=== PATIENT | male | born 1980 | race African-American/Black ===

== ENCOUNTER 2017-04-16 09:57 | Emergency (ER) | payer OTHER, BC ==
[2017-04-16] MEDS ORDERED: OXYCODONE-ACETAMINOPHEN 5-325 MG TABLET PO ONE (10:55)
--- NOTE | 2017-04-16 11:03 | ER Document Report ---
ED Hand/Wrist Injury - General Mode of Arrival: Ambulatory Information source: Patient TRAVEL OUTSIDE OF THE [place] IN LAST 30 DAYS: No - HPI Injury to: Hand, Middle finger Context: Other - see notes above - General Chief Complaint: Hand Pain Stated Complaint: RIGHT HAND INJURY Notes: 36-year-old male presents to the ED complaining of a throbbing pain to the dorsal aspect of the right hand that started a couple days ago. Patient reports that his right 3rd digit was caught in a conveyor belt on 10/28/2017 which resulted in a partial amputation. Patient had a complete amputation of the right 3rd digit on 04/09/2017 and is now complaining of throbbing pain. Patient saw his surgeon, Dr. Hui, yesterday and had the hand splinted and wrapped in an parish wrap. Patient states that he was given 600 mg Ibuprofen for pain control , but reports that it does not help. (KAREN KRAMER) - Related Data Allergies/Adverse Reactions: Shellfish * [Shellfish] Allergy (Verified 04/16/17 10:06) beans Allergy (Uncoded 04/16/17 10:06) Past Medical History - General Information source: Patient - Social History Smoking Status: Current Every Day Smoker Chew tobacco use (# tins/day): No Frequency of alcohol use: None Drug Abuse: None Family History: Reviewed & Not Pertinent, Other - Brother with kidney stones. Patient has suicidal ideation: No Patient has homicidal ideation: No Pulmonary Medical History: Reports: Hx Asthma Renal/ Medical History: Denies: Hx Peritoneal Dialysis Past Surgical History: Reports: Hx Orthopedic Surgery - right hand 3rd digit amputation 04/09/2017 - Immunizations Immunizations up to date: Yes Hx Diphtheria, Pertussis, Tetanus Vaccination: Yes Review of Systems - Review of Systems Constitutional: No symptoms reported EENT: No symptoms reported Cardiovascular: No symptoms reported Respiratory: No symptoms reported Gastrointestinal: No symptoms reported Genitourinary: No symptoms reported Male Genitourinary: No symptoms reported Musculoskeletal: See HPI, Other - throbbing pain to the dorsal aspect of the right hand Skin: No symptoms reported Hematologic/Lymphatic: No symptoms reported Neurological/Psychological: No symptoms reported -: Yes All other systems reviewed and negative Physical Exam - General General appearance: Alert In distress: None - HEENT Head: Normocephalic, Atraumatic Eyes: Normal Extraocular movements intact: Yes Pupils: PERRL - Respiratory Respiratory status: No respiratory distress - Cardiovascular Rhythm: Regular - Abdominal Inspection: Normal - Back Back: Normal - Extremities General upper extremity: No: Normal inspection - see hand exam General lower extremity: Normal inspection, Normal ROM Hand: Other - Patient is missing his right third digit. There is pain to the dorsal aspect of the right hand upon palpation.. No: Normal - Neurological Neuro grossly intact: Yes Cognition: Normal Orientation: AAOx4 Dierks Coma Scale Eye Opening: Spontaneous Arielle Coma Scale Verbal: Oriented Arielle Coma Scale Motor: Obeys Commands Dierks Coma Scale Total: 15 Speech: Normal - Psychological Associated symptoms: Normal affect, Normal mood - Skin Skin Temperature: Warm Skin Moisture: Dry Skin Color: Normal Course - Re-evaluation Re-evalutation: 04/16/17 12:14 Acute findings on x-ray. No evidence for infection. Patient will be given better pain control and is to follow-up with his doctor. Of note, he saw a hand surgeon yesterday. (LOUISE MISTRY) - Vital Signs Vital signs: Temp Pulse Resp BP Pulse Ox 98.2 F 77 18 131/90 H 100 04/16/17 10:06 04/16/17 10:06 04/16/17 10:06 04/16/17 10:06 04/16/17 10:06 Discharge - Discharge Clinical Impression: Hand pain, right, Post-op pain Condition: Stable Disposition: HOME, SELF-CARE Instructions: Arm Pain, Nonspecific ([facility]) Additional Instructions: Follow-up with your surgeon as scheduled. There is no evidence for infection today. Prescriptions: Oxycodone HCl/Acetaminophen [Percocet 5-325 mg Tablet] 1 tab PO TIDP PRN #20 tablet PRN Reason: Scribe Attestation: 04/16/17 12:17 I personally performed the services described in the documentation, reviewed and edited the documentation which was dictated to the scribe in my presence, and it accurately records my words and actions. (LOUISE MISTRY) Scribe Documentation - Scribe Written by Scribe:: Elpidio Swanson, 04/16/2017 1105 acting as scribe for :: Hardy
--- NOTE | 2017-04-16 12:06 | RADIOLOGY REPORT (SQ) ---
EXAM DESCRIPTION: HAND RIGHT 3 VIEWS COMPLETED DATE/TIME: 04/16/2017 10:50 am REASON FOR STUDY: hand injury COMPARISON: None. EXAM PARAMETERS: NUMBER OF VIEWS: Three views. TECHNIQUE: AP, lateral and oblique radiographic images acquired of the right hand. LIMITATIONS: None. FINDINGS: MINERALIZATION: Normal. BONES: The 3rd digit has been amputated down to the base of the 3rd metacarpal. No acute osseous abn ormality seen. JOINTS: No effusions. SOFT TISSUES: No soft tissue swelling. No foreign body. OTHER: A long pin appears to traverse the 2nd, 4th, and 5th metacarpals. Surgical clips are present between the 2nd and 4th metacarpals. IMPRESSION: Surgical changes with no acute abnormality. TECHNICAL DOCUMENTATION: JOB ID: [id number] [employer]- All Rights Reserved
[2017-04-16 12:48] VITALS: BP 146/95
== END 2017-04-16 12:20 | disposition home or self-care (01) ==
LOC: ER 09:57
DX: G89.18 Other acute postprocedural pain (principal); M79.643 Pain in unspecified hand; J45.909 Unspecified asthma, uncomplicated; F17.200 Nicotine dependence, unspecified, uncomplicated; Z91.013 Allergy to seafood; Z91.018 Allergy to other foods; Z89.021 Acquired absence of right finger(s)
CPT/HCPCS: 99283

== ENCOUNTER 2017-05-08 23:32 | Emergency (ER) | payer OTHER, BC ==
[2017-05-09] MEDS ORDERED: SULFAMETHOXAZOLE/TRIMETHOPRIM 800-160 MG TABLET PO ONE (00:01)
[2017-05-09] MEDS ORDERED: CEPHALEXIN 500 MG CAPSULE PO ONE (00:01)
[2017-05-09] MEDS ORDERED: ACETAMINOPHEN 325 MG TABLET PO ONE (00:01)
[2017-05-09] MEDS ORDERED: MORPHINE SULFATE IR 15 MG TABLET PO ONE (00:01)
--- NOTE | 2017-05-09 00:02 | ER Document Report ---
ED General - General Chief Complaint: Hand Pain Stated Complaint: HAND PAIN Time Seen by Provider: 05/08/17 23:56 Notes: Patient is a 36-year-old male who had a partial amputation of his right third digit secondary to a work accident approximately 2 weeks ago, procedure performed at [facility] who presents with concerns of increasing pain to the area as well as movement of the pin Describes a dull, constant, aching pain that is worsened by movement of the hand. He has been trying ibuprofen with minimal improvement of the pain. He also notes that he has had a small amount of malodorous discharge around the insertion site of the external fixation device. He contacted his orthopedic surgeon but was told he could not be seen for 2 weeks. No other history of this in the postoperative course. He has not had any fever or constitutional symptoms. TRAVEL OUTSIDE OF THE [place] IN LAST 30 DAYS: No - Related Data Allergies/Adverse Reactions: Shellfish * [Shellfish] Allergy (Verified 04/16/17 10:06) beans Allergy (Uncoded 04/16/17 10:06) Past Medical History - General Information source: Patient - Social History Smoking Status: Never Smoker Frequency of alcohol use: None Drug Abuse: None Lives with: Spouse/Significant other Family History: Reviewed & Not Pertinent, Other - Brother with kidney stones. Patient has suicidal ideation: No Patient has homicidal ideation: No Pulmonary Medical History: Reports: Hx Asthma Renal/ Medical History: Denies: Hx Peritoneal Dialysis Past Surgical History: Reports: Hx Orthopedic Surgery - right hand 3rd digit amputation 04/09/2017 - Immunizations Immunizations up to date: Yes Hx Diphtheria, Pertussis, Tetanus Vaccination: Yes Review of Systems - Review of Systems Notes: Constitutional: Negative for fever. HENT: Negative for sore throat. Eyes: Negative for visual changes. Cardiovascular: Negative for chest pain. Respiratory: Negative for shortness of breath. Gastrointestinal: Negative for abdominal pain, vomiting or diarrhea. Genitourinary: Negative for dysuria. Musculoskeletal: Positive for right hand pain Skin: Negative for rash. Neurological: Negative for headaches, weakness or numbness. 10 point ROS negative except as marked above and in HPI. Physical Exam - Vital signs Vitals: Temp Pulse Resp BP Pulse Ox 98 F 84 18 151/86 H 98 05/08/17 23:53 05/08/17 23:53 05/08/17 23:53 07/07/17 23:53 05/08/17 23:53 Interpretation: Hypertensive Notes: PHYSICAL EXAMINATION: GENERAL: Well-appearing, well-nourished and in no acute distress. HEAD: Atraumatic, normocephalic. EYES: sclera anicteric, conjunctiva are normal. ENT: Moist mucous membranes. NECK: Normal range of motion LUNGS: Normal work of breathing HEART: 2+ radial pulses bilaterally EXTREMITIES: Mild amount of purulent drainage around the K wire insertion site of the right hand on the dorsal surface. Amputation of the third digit NEUROLOGICAL: No focal neurological deficits. Moves all extremities spontaneously and on command. PSYCH: Normal mood, normal affect. SKIN: Warm, Dry, normal turgor, no rashes or lesions noted. Course - Re-evaluation Re-evalutation: 05/09/17 00:01 Patient presents after he had an amputation of the third digit of his right hand one month ago in [place] with concerns that the pin that was placed has some deeper into the soft tissue, now has a malodorous discharge and is increasingly painful concerning for an acute infection. Apparently he contacted the orthopedic surgeon marketing automation specialist and was told that he can have an appointment in 2 weeks so he came here to the emergency department for further evaluation. Patient is otherwise nontoxic in appearance, no acute distress, neurovascularly intact. Will obtain a basic x-ray, start on Keflex and Bactrim for broad staph and strep coverage and I encouraged the patient to try to follow -up with his orthopedic surgeon much sooner than 2 weeks. 05/09/17 00:46 X-ray without evidence of hardware displacement. At this time will discharge with return precautions and follow-up recommendations. Verbal discharge instructions given a the bedside and opportunity for questions given. Medication warnings reviewed. Patient is in agreement with this plan and has verbalized understanding of return precautions and the need for primary care follow-up in the next 24-72 hours. - Vital Signs Vital signs: Temp Pulse Resp BP Pulse Ox 98 F 77 20 148/82 H 100 05/08/17 23:53 05/09/17 00:57 05/09/17 00:57 05/09/17 00:57 05/09/17 00:57 Discharge - Discharge Clinical Impression: Right hand pain Surgical site infection Qualifiers: Encounter type: initial encounter Qualified Code(s): T81.4XXA - Infection following a procedure, initial encounter Condition: Good Disposition: HOME, SELF-CARE Additional Instructions: Your x-ray does not show displacement of the hardware placed in your hand. Your being started on 2 different antibiotics to help treat a possible infection. Please take all antibiotics even if your symptoms improve. Please follow-up up with her orthopedic surgeon as soon as possible. Return to the emergency department if you have worsening of your pain, spreading redness from the area, fever greater than 101F, or any other symptoms that are worrisome to you. Prescriptions: Cephalexin Monohydrate [Keflex 500 mg Capsule] 500 mg PO QID #28 capsule Sulfamethoxazole/Trimethoprim [Bactrim Ds Tablet] 1 tab PO BID #14 tablet
--- NOTE | 2017-05-09 00:32 | RADIOLOGY REPORT (SQ) ---
EXAM DESCRIPTION: HAND RIGHT 2 VIEWS COMPLETED DATE/TIME: 05/09/2017 12:12 am REASON FOR STUDY: increased pain post-dayton placement COMPARISON: None. EXAM PARAMETERS: NUMBER OF VIEWS: Three views. TECHNIQUE: AP, lateral and oblique radiographic images acquired of the right hand. LIMITATIONS: None. FINDINGS: MINERALIZATION: Normal. BONES: Pin fixation of the right 2nd, 4th, and 5th meta carpi. Surgical clips between the 2nd and 4t h digits. Amputation of the right 3rd digit at the proximal diaphysis. No evidence of metal fractur e or loosening. JOINTS: No effusions. SOFT TISSUES: No soft tissue swelling. No foreign body. OTHER: No other significant finding. IMPRESSION: No acute findings. Prior ORIF. TECHNICAL DOCUMENTATION: JOB ID: [id number] [employer]- All Rights Reserved
[2017-05-09] MEDS ORDERED: HYDROCODONE/ACETAMINOPHEN 5-325 MG 6 TAB/DSPK PO PRN (00:47)
[2017-05-09 00:58] VITALS: BP 148/82
== END 2017-05-09 00:58 | disposition home or self-care (01) ==
LOC: ER 23:32
DX: M79.641 Pain in right hand (principal); T81.4XXA Infection following a procedure, initial encounter; Z89.021 Acquired absence of right finger(s); Z91.013 Allergy to seafood; Z91.018 Allergy to other foods
CPT/HCPCS: 99283

== ENCOUNTER 2018-06-03 15:57 | Emergency (ER) | payer SELFPAY ==
[2018-06-03 16:03] VITALS: BP 150/92
--- NOTE | 2018-06-03 16:30 | ER Document Report ---
HPI - HPI Patient complains to provider of: Posterior left knee pain Onset: Other - 2 weeks Onset/Duration: Intermittent Pain Level: 3 Context: 37-year-old male complaining of posterior right knee pain especially when he leaves it to straight for too long or bent for too long it seems to get locked. There is no injury. The pain does radiate around to the anterior part of his right leg. There is no back pain no fever. This started about 2 weeks ago. He works in a [employer]. No history of DVT or PE. No chest pain or shortness of breath. Associated Symptoms: None Exacerbated by: Other - See above Relieved by: Denies Similar symptoms previously: No Recently seen / treated by doctor: No - ROS ROS below otherwise negative: Yes Systems Reviewed and Negative: Yes All other systems reviewed and negative Past Medical History - General Information source: Patient - Social History Smoking Status: Never Smoker Frequency of alcohol use: None Drug Abuse: None Lives with: Family Family History: Reviewed & Not Pertinent, Other - Brother with kidney stones. Pulmonary Medical History: Reports: Hx Asthma Renal/ Medical History: Denies: Hx Peritoneal Dialysis Past Surgical History: Reports: Hx Orthopedic Surgery - right hand 3rd digit amputation 04/09/2017 - Immunizations Immunizations up to date: Yes Hx Diphtheria, Pertussis, Tetanus Vaccination: Yes Vertical Provider Document - CONSTITUTIONAL Agree With Documented VS: Yes Exam Limitations: No Limitations - INFECTION CONTROL TRAVEL OUTSIDE OF THE [place] IN LAST 30 DAYS: No - RESPIRATORY Respiratory: Breath Sounds Normal, No Respiratory Distress - CARDIOVASCULAR Cardiovascular: Regular Rate, Regular Rhythm - MUSCULOSKELETAL/EXTREMETIES Musculoskeletal/Extremeties: MAEW, FROM, Tender - Posterior medial left knee, no Clemons's cyst., No Edema - NEURO Level of Consciousness: Alert Motor/Sensory: No Motor Deficit, No Sensory Deficit - DERM Integumentary: No Rash Course - Re-evaluation Re-evalutation: 06/03/18 17:50 X-rays negative per rad. Consult Dr. Mclaughlin who recommends getting a venous Doppler ultrasound. 06/03/18 18:38 The patient does not want to wait for the venous Doppler ultrasound he wants to go home and take Tylenol. I had the nurse present in the room and advised him of his risks which would include a blood clot in his leg and a piece breaking off and going into the lung and possibly causing . He is willing to accept this risk and is signing the AMA forms. - Vital Signs Vital signs: Temp Pulse Resp BP Pulse Ox 99.0 F 94 16 150/92 H 98 06/03/18 16:02 06/03/18 16:02 06/03/18 16:02 06/03/18 16:02 06/03/18 16:02 Discharge - Discharge Disposition: AGAINST MEDICAL ADVICE
--- NOTE | 2018-06-03 17:38 | RADIOLOGY REPORT (SQ) ---
EXAM DESCRIPTION: KNEE RIGHT 4 VIEWS COMPLETED DATE/TIME: 06/03/2018 5:17 pm REASON FOR STUDY: pain COMPARISON: March 2016 NUMBER OF VIEWS: Four views. TECHNIQUE: AP, lateral, and both oblique radiographic images acquired of the right knee. LIMITATIONS: None. FINDINGS: MINERALIZATION: Normal. BONES: No acute fracture or dislocation. No worrisome bone lesions. JOINT: No effusion. SOFT TISSUES: No soft tissue swelling. No radio-opaque foreign body. OTHER: No other significant finding. IMPRESSION: NEGATIVE STUDY OF THE RIGHT KNEE. NO RADIOGRAPHIC EVIDENCE OF ACUTE INJURY. TECHNICAL DOCUMENTATION: JOB ID: [id number] [employer]- All Rights Reserved Reading location - IP/workstation name: [email or web address]
== END 2018-06-03 18:44 | disposition left against medical advice (07) ==
LOC: ER 15:57
DX: M25.561 Pain in right knee (principal); J45.909 Unspecified asthma, uncomplicated; Z53.20 Procedure and treatment not carried out because of patient's decision for unspecified reasons
CPT/HCPCS: 99283

== ENCOUNTER → 2019-01-26 | Outpatient (CLI) | payer BC ==
--- NOTE | 2019-01-26 15:46 | RADIOLOGY REPORT (SQ) ---
EXAM DESCRIPTION: MRI RT LOWER JOINT WITHOUT COMPLETED DATE/TIME: 01/26/2019 1:01 pm REASON FOR STUDY: M25.561 PAIN IN RIGHT KNEE M25.561 PAIN IN RIGHT KNEE COMPARISON: None. TECHNIQUE: Rightknee images acquired and stored on PACS. Multiplanar images include fat sensitive s equences as T1, water sensitive sequences as FST2 or STIR, cartilage sensitive sequences as FSPD, and gradient echo sequences. LIMITATIONS: None. FINDINGS: JOINT AND BURSAE: Small suprapatellar knee joint effusion BONE CORTEX AND MARROW: Mild marrow edema along the anterior aspect of the tibial spines at the ACL a ttachment. No marrow signal abnormalities worrisome for occult fracture or aggressive marrow replace ment process ACL: Anterior cruciate ligament is diffusely high signal and indistinct on the T1 weighted images fro m diffuse degeneration. 2 x 1.5 cm cyst is present along the proximal attachment of the anterior cru ciate ligament best shown on sagittal image 12 and coronal image 19. PCL: Intact. MCL: Intact. No periligamentous edema or fluid. LCL: Intact. No periligamentous edema or fluid. MEDIAL MENISCUS: No tears. No abnormal signal. LATERAL MENISCUS: No tears. No abnormal signal. MEDIAL COMPARTMENT: Cartilage preserved. No bone bruises or reactive marrow edema. No osteophytes. LATERAL COMPARTMENT: Cartilage preserved. No bone bruises or reactive marrow edema. No osteophytes. PATELLA: There is mild lateral subluxation of patella with respect to the distal femur best shown on axial images 8-12. No chondrocalcinosis EXTENSOR MECHANISM: Intact. Quadriceps and patella tendons normal. SOFT TISSUES: Adjacent muscles and subcutaneous tissues normal. Normal flow void in popliteal artery and vein. OTHER: No other significant finding. IMPRESSION: Diffusely degenerated anterior cruciate ligament with cystic change at its proximal shannan chment, and edema in the anterior tibial spines at its distal attachment TECHNICAL DOCUMENTATION: JOB ID: [id number] [employer]- All Rights Reserved Reading location - IP/workstation name: [email or web address]
== END ==
LOC: RAD 14:23
PROVIDERS: ATTEND Orthopaedic Surgery
DX: M25.561 Pain in right knee (principal)

== ENCOUNTER 2019-10-28 15:34 | Emergency (ER) | payer BC | END 2019-10-28 16:30 | disposition left against medical advice (07) | LOC: ER 15:34 | DX: Z53.21 Procedure and treatment not carried out due to patient leaving prior to being seen by health care provider (principal) ==